=== PATIENT | male | born 1990 | race Caucasian/White ===

== ENCOUNTER 2019-05-05 07:04 | Emergency (ER) | payer OTHER, SELFPAY ==
[2019-05-05] MEDS ORDERED: Ibuprofen 600 MG TAB ONE (08:14)
--- NOTE | 2019-05-05 09:05 | RAD ---
Exam: XR Foot Lt 3 View STANDARD HISTORY: Trauma to left foot and ankle. COMPARISON: None FINDINGS: No acute fracture, dislocation, or other acute osseous abnormality is identified. IMPRESSION: No acute osseous abnormality is identified.
--- NOTE | 2019-05-05 09:05 | RAD ---
Exam: XR Ankle Lt 3 View STANDARD HISTORY: Trauma to left ankle. COMPARISON: None FINDINGS: No acute fracture, dislocation, or other acute osseous abnormality is identified. IMPRESSION: No acute osseous abnormality is identified.
== END 2019-05-05 08:20 ==
LOC: MADERS 07:04
DX: S61.412A Laceration without foreign body of left hand, initial encounter (principal); S61.411A Laceration without foreign body of right hand, initial encounter; S93.402A Sprain of unspecified ligament of left ankle, initial encounter; F41.9 Anxiety disorder, unspecified; F32.9 Major depressive disorder, single episode, unspecified; F17.210 Nicotine dependence, cigarettes, uncomplicated; W25.XXXA Contact with sharp glass, initial encounter